=== PATIENT | male | born 1940 | race Caucasian/White ===

== ENCOUNTER 2017-06-06 05:23 | Inpatient (IN) | payer MEDICARE ==
[2017-05-30 10:48] LABS: BASOPHILS % (AUTO) 0.2 % (0-1); EOSINOPHILS # (AUTO) 0.2 X10'3 (0-0.9); EOSINOPHILS % (AUTO) 2.5 % (0-6); LYMPHOCYTES # (AUTO) 0.8 X10'3 (1.1-4.8); LYMPHOCYTES % (AUTO) 13.7 % (21-51); MEAN CORPUSCULAR HEMOGLOBIN 32.1 PG (27.0-31.0); MEAN CORPUSCULAR HGB CONC 35.6 % (33.0-36.5); MEAN CORPUSCULAR VOLUME 90.3 FL (78-98); MEAN PLATELET VOLUME 7.6 FL (7.4-10.4); MONOCYTES # (AUTO) 0.5 X10'3 (0-0.9); MONOCYTES % (AUTO) 8.4 % (2-12); NEUTROPHILS # (AUTO) 4.5 X10'3 (1.8-7.7); NEUTROPHILS % (AUTO) 75.2 % (42-75); PRE OP HEMATOCRIT 40.9 % (42.0-52.0); PRE OP HEMOGLOBIN 14.6 g/dL (14.0-17.9); PRE OP PLATELET COUNT 185 X10'3 (140-440); RED BLOOD COUNT 4.53 X10'6 (4.70-6.10); RED CELL DISTRIBUTION WIDTH 13.9 % (11.5-14.5)
[2017-05-30 10:56] LABS: CLARITY,URINE CLEAR (Clear); COLOR,URINE YELLOW (Yellow); GLUCOSE, URINE >=1000 mg/dl (Neg); KETONES,URINE TRACE mg/dl (Neg); LEUKOCYTE ESTERASE ,URINE NEGATIVE (Neg); NITRITES, URINE NEGATIVE (Neg); OCCULT BLOOD,URINE NEGATIVE (Neg); PH,URINE 5.5 (4.8-8.0); PROTEIN,URINE NEGATIVE (Neg); UA COLLECTION TYPE CLN CATCH MIDSTREAM; UROBILINOGEN,URINE 0.2 E.U/dL (0.2-1.0)
[2017-05-30 10:58] LABS: PRE OP PROTIME 10.5 SECONDS (9.0-12.0)
[2017-05-30 10:59] LABS: HEMOGLOBIN A1C 6.6 % (4.5-6.2)
[2017-05-30 11:01] LABS: ALBUMIN 3.9 G/DL (3.4-5.0); ALBUMIN/GLOBULIN RATIO 1.3 (1.1-1.5); ALKALINE PHOSPHATASE 57 IU/L (46-116); BLOOD UREA NITROGEN 24 MG/DL (7-18); BUN/CREATININE RATIO 17.3 (5.4-32.0); CALCIUM 9.5 MG/DL (8.5-10.1); CHLORIDE 100 MMOL/L (99-107); CREATININE 1.39 MG/DL (0.60-1.10); PRE OP ALT 46 U/L (30-65); PRE OP ANION GAP 8 (8-16); PRE OP AST 29 U/L (10-37); PRE OP BILIRUB, TOTAL 0.8 MG/DL (0.0-1.0); PRE OP GLUCOSE 189 MG/DL (70-104); PRE OP POTASSIUM 4.2 MMOL/L (3.4-5.1); PRE OP SODIUM 137 MMOL/L (135-145); TOTAL CARBON DIOXIDE 28.6 MMOL/L (24-32); eGFR 50 ML/MIN
[2017-05-30 11:01] LABS: BACTERIA,URINE FEW /HPF (Neg); RBC,URINE 0-2 /HPF (0-2); SQUAMOUS EPITHELIAL CELL,UR FEW /LPF (FEW); WBC,URINE 0-4 /HPF (0-4)
[~2017-06-06] VITALS: Ht 180.3 cm; Wt 91.1 kg
[2017-06-06] VITALS (17 sets, daily range): BP systolic 107–135; BP diastolic 53–78
[~2017-06-06 05:23] MED LIST: AMLO5TAB PO; ATOR10TA70 PO; FLO0.4C PO; METF500T7 PO; METO-477 PO; PANT-47 PO; TRIA1CAP2 PO; ringers solution, lacted 1,000 ML IV SCH
[2017-06-06] MEDS ORDERED: tranexamic acid inj. 1,000 MG in normal saline 100ml IV soln 90 ML IV ONE (05:30)
[2017-06-06] MEDS ORDERED: gabapentin 300mg capsule PO ONE (05:30)
[2017-06-06] MEDS ORDERED: DOCUMENT DATE & TIME OF BETA-BLOCKER PO ONE (05:30)
[2017-06-06] MEDS ORDERED: celeCOXIB 100mg capsule PO ONE (05:30)
[2017-06-06] MEDS ORDERED: metoclopramide 5 mg/ml inj IV ONE (05:30)
[2017-06-06] MEDS ORDERED: ceFAZolin 2gm in dextrose, iso 100 ML IV ONE (05:30)
[2017-06-06] MEDS ORDERED: vancomycin inj 1,500 MG in normal saline 300ml IV soln IV ONE (05:30)
[2017-06-06] MEDS ORDERED: famotidine 20mg tablet PO ONE (05:30)
[2017-06-06] MEDS ORDERED: acetaminophen 325mg tablet PO ONE (05:30)
[2017-06-06] MEDS ORDERED: oxyCODONE SR 10mg (sust. release) tab PO ONE (05:30)
[2017-06-06] MEDS ORDERED: LIDOcaine 1% (10mg/ml) 2ml vial ONE (05:59)
[2017-06-06] MEDS ORDERED: vancomycin 1,000mg inj ONE (06:35)
[2017-06-06] MEDS ORDERED: ketorolac trometh. 30mg/ml inj. ONE (06:35)
[2017-06-06] MEDS ORDERED: cloNIDine hcl/PF 100mcg/ml inj ONE (06:35)
[2017-06-06] MEDS ORDERED: epiNEPHrine 1 mg/ml inj ONE (06:35)
[2017-06-06] MEDS ORDERED: ROPIVAcaine 0.5% (5mg/ml) 30ml vial ONE (06:36)
[2017-06-06] MEDS ORDERED: MIDAZolam 5mg/5ml vial ONE (06:52)
[2017-06-06] MEDS ORDERED: BUPIVAcaine/dex-water/PF 7.5 mg/ml 2ml ampul ONE (06:53)
[2017-06-06] MEDS ORDERED: fentaNYL /PF 50mcg/ml 5ml ampule ONE (06:53)
[2017-06-06] MEDS ORDERED: glycopyrrolate 0.2mg/ml inj ONE (06:54)
[2017-06-06] MEDS ORDERED: morphine /PF 1mg/ml 10ml inj. ONE (06:56)
[2017-06-06] MEDS ORDERED: propofol inj 40 ML IV ONE (07:12)
[2017-06-06] MEDS ORDERED: ringers solution, lacted 1,000 ML IV SCH (08:39)
[2017-06-06] MEDS ORDERED: ondansetron/PF 4mg/2ml inj IV PRN ×2 (08:40→10:00)
[2017-06-06] MEDS ORDERED: HYDROmorphone inj. 0.5 MG/0.5 ML DISP.SYRIN IV PRN (08:40)
[2017-06-06] MEDS ORDERED: fentaNYL/PF 50MCG/1 ML 2ML syringe IV PRN (08:40)
[2017-06-06] MEDS ORDERED: BUPIVAcaine/PF 2.5 mg/ml (0.25%) 30ml vial ONE (09:05)
[2017-06-06] MEDS ORDERED: oxyCODONE/APAP 10/325mg tablet PO PRN (10:00)
[2017-06-06] MEDS ORDERED: diphenhydrAMINE 25mg capsule PO PRN ×2 (10:00)
[2017-06-06] MEDS ORDERED: acetaminophen 325mg tablet PO PRN (10:00)
[2017-06-06] MEDS ORDERED: dextrose ORAL solution 15 GM/59 ML bottle PO PRN ×2 (10:00)
[2017-06-06] MEDS ORDERED: glucagon, human recombinant 1mg kit SUBCUT PRN (10:00)
[2017-06-06] MEDS ORDERED: magnesium hydroxide 30ml (MOM) UD suspension PO PRN (10:00)
[2017-06-06] MEDS ORDERED: MORPHINE 2MG in 2ml NS syringe IV PRN (10:00)
[2017-06-06] MEDS ORDERED: MESSAGE TO PHARMACY PO ONE (10:00)
[2017-06-06] MEDS ORDERED: dextrose 50%-water 50ml dispensing syringe IV PRN ×2 (10:00)
[2017-06-06] MEDS ORDERED: bisacodyl 10mg suppository rectal RC PRN (10:00)
[2017-06-06] MEDS: potassium cl 20mEq in 1/2 NS 1,000 ML IV SCH ×2 (13:51→23:54)
[2017-06-06] MEDS: oxyCODONE/APAP 10/325mg tablet PO SCH ×4 (13:51→23:54)
[2017-06-06] MEDS: gabapentin 300mg capsule PO SCH ×2 (13:51→20:06)
[2017-06-06] MEDS: ceFAZolin inj. 2,000 MG in normal saline 100ml IV soln 100 ML IV SCH (16:00)
[2017-06-06] MEDS: sennosides 8.6mg tablet PO SCH (20:05)
[2017-06-06] MEDS: celeCOXIB 100mg capsule PO SCH (20:05)
[2017-06-06] MEDS: ascorbic acid 500mg tablet PO SCH (20:05)
[2017-06-06] MEDS: metoprolol tartrate 50mg tablet PO SCH (20:05)
[2017-06-07] MEDS: ceFAZolin inj. 2,000 MG in normal saline 100ml IV soln 100 ML IV SCH ×2
[2017-06-07] MEDS ORDERED: cefazolin/dext.iso 2gm/50ml 50 ML IV ONE (00:02)
[2017-06-07 02:09] VITALS: BP 133/71
[2017-06-07] MEDS: oxyCODONE/APAP 10/325mg tablet PO SCH ×6 (04:53→23:29)
[2017-06-07 06:00] VITALS: BP 135/66
[2017-06-07 06:03] LABS: BASOPHILS % (AUTO) 0.3 % (0-1); EOSINOPHILS # (AUTO) 0.2 X10'3 (0-0.9); EOSINOPHILS % (AUTO) 3.4 % (0-6); HEMATOCRIT 34.6 % (42.0-52.0); LYMPHOCYTES # (AUTO) 0.7 X10'3 (1.1-4.8); LYMPHOCYTES % (AUTO) 10.5 % (21-51); MEAN CORPUSCULAR HEMOGLOBIN 31.5 PG (27.0-31.0); MEAN CORPUSCULAR HGB CONC 34.7 % (33.0-36.5); MEAN CORPUSCULAR VOLUME 90.8 FL (78-98); MEAN PLATELET VOLUME 7.6 FL (7.4-10.4); MONOCYTES # (AUTO) 0.8 X10'3 (0-0.9); MONOCYTES % (AUTO) 11.7 % (2-12); NEUTROPHILS # (AUTO) 4.9 X10'3 (1.8-7.7); NEUTROPHILS % (AUTO) 74.1 % (42-75); PLATELET COUNT 163 X10'3 (140-440); RED BLOOD COUNT 3.81 X10'6 (4.70-6.10); RED CELL DISTRIBUTION WIDTH 14.2 % (11.5-14.5); WHITE BLOOD COUNT 6.7 X10'3 (4.5-11.0)
[2017-06-07 06:29] LABS: ANION GAP 8 (8-16); CHLORIDE 101 MMOL/L (99-107); POTASSIUM 4.3 MMOL/L (3.5-5.1); SODIUM 136 MMOL/L (135-145); TOTAL CARBON DIOXIDE 27.1 MMOL/L (24-32)
[2017-06-07] MEDS: potassium cl 20mEq in 1/2 NS 1,000 ML IV SCH ×2 (09:35→10:29)
[2017-06-07] MEDS: insulin Lispro (HumaLOG) vial - multi-dose SQ SCH ×3 (09:50→19:34)
[2017-06-07 10:00] VITALS: BP 132/69
[2017-06-07] MEDS: celeCOXIB 100mg capsule PO SCH ×2 (10:21→19:36)
[2017-06-07] MEDS: atorvastatin 10mg tablet PO SCH (10:22)
[2017-06-07] MEDS: tamsulosin 0.4mg capsule PO SCH (10:22)
[2017-06-07] MEDS: gabapentin 300mg capsule PO SCH ×3 (10:23→19:36)
[2017-06-07] MEDS: metoprolol tartrate 50mg tablet PO SCH ×2 (10:23→19:36)
[2017-06-07] MEDS: triamterene/HCTZ 37.5/25mg tablet PO SCH (10:23)
[2017-06-07] MEDS: ascorbic acid 500mg tablet PO SCH ×2 (10:24→19:37)
[2017-06-07] MEDS: multivitamins, therapeutics tablet PO SCH (10:24)
[2017-06-07] MEDS: aspirin 325mg tablet PO SCH (10:25)
[2017-06-07] MEDS: amLODIPine 5mg tablet PO SCH (10:26)
[2017-06-07] MEDS: pantoprazole 40mg Tablet.DR PO SCH (10:26)
[2017-06-07 14:00] VITALS: BP 101/56
[2017-06-07 18:00] VITALS: BP 125/68
[2017-06-07] MEDS: sennosides 8.6mg tablet PO SCH (19:37)
[2017-06-07 22:17] VITALS: BP 112/49
[2017-06-08] MEDS: oxyCODONE/APAP 10/325mg tablet PO SCH ×2 (04:07→08:13)
[2017-06-08 05:00] VITALS: BP 116/66
[2017-06-08 06:07] LABS: BASOPHILS % (AUTO) 0.1 % (0-1); EOSINOPHILS # (AUTO) 0.2 X10'3 (0-0.9); EOSINOPHILS % (AUTO) 3.1 % (0-6); HEMATOCRIT 33.1 % (42.0-52.0); HEMOGLOBIN 11.7 g/dl (14.0-17.9); LYMPHOCYTES # (AUTO) 0.7 X10'3 (1.1-4.8); LYMPHOCYTES % (AUTO) 11.5 % (21-51); MEAN CORPUSCULAR HEMOGLOBIN 31.6 PG (27.0-31.0); MEAN CORPUSCULAR HGB CONC 35.4 % (33.0-36.5); MEAN CORPUSCULAR VOLUME 89.2 FL (78-98); MEAN PLATELET VOLUME 7.2 FL (7.4-10.4); MONOCYTES # (AUTO) 0.8 X10'3 (0-0.9); NEUTROPHILS # (AUTO) 4.8 X10'3 (1.8-7.7); NEUTROPHILS % (AUTO) 73.3 % (42-75); PLATELET COUNT 168 X10'3 (140-440); RED BLOOD COUNT 3.71 X10'6 (4.70-6.10); RED CELL DISTRIBUTION WIDTH 13.9 % (11.5-14.5); WHITE BLOOD COUNT 6.5 X10'3 (4.5-11.0)
[2017-06-08] MEDS ORDERED: ASPI-1 PO (06:51)
[2017-06-08] MEDS: aspirin 325mg tablet PO SCH (07:05)
[2017-06-08] MEDS: triamterene/HCTZ 37.5/25mg tablet PO SCH (07:06)
[2017-06-08] MEDS: tamsulosin 0.4mg capsule PO SCH (07:06)
[2017-06-08] MEDS: pantoprazole 40mg Tablet.DR PO SCH (07:06)
[2017-06-08] MEDS: celeCOXIB 100mg capsule PO SCH (07:06)
[2017-06-08] MEDS: ascorbic acid 500mg tablet PO SCH (07:06)
[2017-06-08] MEDS: multivitamins, therapeutics tablet PO SCH (07:06)
[2017-06-08] MEDS: gabapentin 300mg capsule PO SCH (07:07)
[2017-06-08] MEDS: amLODIPine 5mg tablet PO SCH (07:07)
[2017-06-08] MEDS: atorvastatin 10mg tablet PO SCH (07:07)
[2017-06-08] MEDS: metoprolol tartrate 50mg tablet PO SCH (07:07)
[2017-06-08] MEDS: insulin Lispro (HumaLOG) vial - multi-dose SQ SCH (08:23)
== END 2017-06-08 09:50 | disposition home or self-care (01) | DRG 470 ==
LOC: PAS IN 05:23 → EDSTATUS 07:30 → ORTHO 4S 10:55
PROVIDERS: ADMIT Orthopaedic Surgery; ATTEND Orthopaedic Surgery
PROC: 0SRD0J9 Replacement of Left Knee Joint with Synthetic Substitute, Cemented, Open Approach (ICD-10-PCS; principal; 2017-06-06 07:15)
DX: M17.12 Unilateral primary osteoarthritis, left knee (principal); E11.22 Type 2 diabetes mellitus with diabetic chronic kidney disease; D62 Acute posthemorrhagic anemia; N18.3 Chronic kidney disease, stage 3 (moderate); K21.9 Gastro-esophageal reflux disease without esophagitis; M22.2X1 Patellofemoral disorders, right knee; E78.5 Hyperlipidemia, unspecified; I12.9 Hypertensive chronic kidney disease with stage 1 through stage 4 chronic kidney disease, or unspecified chronic kidney disease; M21.062 Valgus deformity, not elsewhere classified, left knee; N40.0 Benign prostatic hyperplasia without lower urinary tract symptoms; Z79.899 Other long term (current) drug therapy; Z79.84 Long term (current) use of oral hypoglycemic drugs
CPT/HCPCS: 36415; 71046; 73560; 80051; 80053; 81001; 82948; 83036; 85025; 85610; 85730; 86885; 86900; 86901; 87070; 93005; 97110; 97116; 97162; 97530; A6255; A6449; A6455; A7000; C1713; C1758; C1776; J0171; J0690; J0735; J1885; J2250; J2274; J2704; J2765; J2795; J3010; J3370; J3490; J7030; J7120

== ENCOUNTER 2018-08-09 12:57 | Emergency (ER) | payer MEDICARE ==
[~2018-08-09] VITALS: Ht 180.3 cm; Wt 87.7 kg
[~2018-08-09 12:57] MED LIST changes: +ASPI-1 PO; -ringers solution, lacted 1,000 ML IV SCH
[2018-08-09 13:10] VITALS: BP 126/68
[2018-08-09] MEDS ORDERED: ketorolac tromethamine 15mg/ml inj. IM ONE (13:50)
[2018-08-09] MEDS ORDERED: orphenadrine citrate 60mg/2ml inj. IM ONE (13:50)
[2018-08-09] MEDS ORDERED: METH-360 PO (13:55)
[2018-08-09] MEDS ORDERED: IBUP-1985 PO (13:55)
== END 2018-08-09 14:15 | disposition home or self-care (01) ==
LOC: ER 12:58
DX: M54.5 Low back pain (principal); E78.00 Pure hypercholesterolemia, unspecified; I10 Essential (primary) hypertension; E11.9 Type 2 diabetes mellitus without complications; Z98.890 Other specified postprocedural states; Z79.82 Long term (current) use of aspirin; Z79.84 Long term (current) use of oral hypoglycemic drugs
CPT/HCPCS: 96372; 99283; J1885; J2360